=== PATIENT | female | born 1995 | race African-American/Black ===

== ENCOUNTER 2016-10-07 10:15 | Emergency (ER) | payer MEDICAID ==
[~2016-10-07] VITALS: Ht 160 cm; Wt 65.0 kg
[2016-10-07 10:17] VITALS: BP 134/92; PULSE 89; RESP 16; TEMP 97.8; O2SAT 99
--- NOTE | 2016-10-07 11:14 | PD ---
HPI . right shoulder pain x 1 day Chief Complaint: Injury Time Seen by Provider: 11:14 Travel History International Travel<30 days: No Contact w/Intl Traveler<30days: No Traveled to known affect area: No History of Present Illness HPI 21-year-old female with no past medical history here with complaints of right shoulder pain for 1 day. 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 She denies any trauma to the area. She did not hear any popping sensation. She denies any dislocation. She is not in severe pain and states she just needed to get checked out. History Past Medical Histgory LMP: PERIOD NOW Hx Chemotherapy: No Social History Alcohol Use: Yes (weekends) Tobacco Use: No Allergies-Medications (Allergen,Severity, Reaction): Coded Allergies: Monistat 7 (Verified Allergy, Intermediate, SWELLING, 10/07/16) Naprosyn (Verified Allergy, Intermediate, VOMIT, 10/07/16) Reported Meds & Prescriptions Reported Meds & Active Scripts Active No Active Prescriptions or Reported Medications Review of Systems General / Constitutional: No: Fever Eyes: No: Visual changes HENT: No: Headaches Cardiovascular: No: Chest Pain or Discomfort Respiratory: No: Shortness of Breath Gastrointestinal: No: Abdominal Pain Genitourinary: No: Dysuria Musculoskeletal: Positive: Pain (right shoulder pain) Skin: No Rash Neurologic: No: Weakness Psychiatric: No: Depression Endocrine: No: Polydipsia Hematologic/Lymphatic: No: Easy Bruising Physical Exam Narrative GENERAL: AAO x 3, no acute distress, Well-nourished, well-developed patient. SKIN: Warm and dry. No visible rashes or bruising. HEAD: Normocephalic and atraumatic. EYES: No scleral icterus. No injection or drainage. ENT: No nasal drainage noted. Mucous membranes pink. Airway patent. NECK: Supple, trachea midline. No JVD. CARDIOVASCULAR: Regular rate and rhythm without murmurs, gallops, or rubs. RESPIRATORY: Breath sounds equal bilaterally. No accessory muscle use. No rhonchi or rales. GASTROINTESTINAL: Abdomen soft, non-tender, nondistended. EXTREMITIES: No cyanosis or edema. Slightly diminished ROM in her right arm. She is able to rotate internally and externally. Strength is normal. Barrel Tester is normal b/l. BACK: Nontender without obvious deformity. No CVA tenderness. PSYCH: AAO x 3, normal affect. Data Data Last Documented VS Vital Signs Date Time Temp Pulse Resp B/P Pulse Ox O2 Delivery O2 Flow Rate FiO2 10/07/16 10:17 97.8 89 16 134/92 99 MDM Medical Screen Exam Complete: Yes Emergency Medical Condition: No Differential Diagnosis Nerve impingement of right shoulder, rotator cuff injury, shoulder bursitis Primary Impression: Encounter for medical screening examination Scripts No Active Prescriptions or Reported Meds Condition: Stable Erika Bolden Oct 07, 2016 11:14
== END 2016-10-07 12:16 | disposition left against medical advice (07) ==
LOC: NEPB 10:15
DX: M25.511 Pain in right shoulder (principal); Y93.F2 Activity, caregiving, lifting; X50.9XXA Other and unspecified overexertion or strenuous movements or postures, initial encounter; Y93.9 Activity, unspecified; Y92.9 Unspecified place or not applicable; Y99.9 Unspecified external cause status
CPT/HCPCS: 99281

== ENCOUNTER 2017-10-02 08:11 | Emergency (ER) | payer SELFPAY ==
[~2017-10-02] VITALS: Ht 160 cm; Wt 70.0 kg
[2017-10-02 08:13] VITALS: BP 121/58; PULSE 99; RESP 17; TEMP 98.2; O2SAT 98
--- NOTE | 2017-10-02 09:06 | PD ---
HPI Chief Complaint: Cold / Flu Symptoms Time Seen by Provider: 08:41 Travel History International Travel<30 days: No Contact w/Intl Traveler<30days: No Traveled to known affect area: No History of Present Illness HPI 21-year-old female presents emergency department with flulike symptoms for the past 24 hours. Patient has positive exposure to both her father and mother being diagnosed with the flu the last 2 weeks. Patient complains of chills, fever, body aches, rhinitis, sore throat and cough. She denies nausea or vomiting. 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 She is a non-smoker. She is allergic to miconazole and naproxen. PFSH Past Medical History Hx Anticoagulant Therapy: No Cardiovascular Problems: No Chemotherapy: No Cerebrovascular Accident: No Diabetes: No Diminished Hearing: No Respiratory: No ?: Not LMP: 09/06/16 : 0 Para: 0 Miscarriage: 0 : 0 Past Surgical History Hysterectomy: No Social History Alcohol Use: Yes (weekends) Tobacco Use: No Substance Use: No Allergies-Medications (Allergen,Severity, Reaction): Coded Allergies: miconazole (Unverified Allergy, Intermediate, SWELLING, 10/02/17) naproxen (Unverified Allergy, Intermediate, VOMIT, 10/02/17) Reported Meds & Prescriptions Reported Meds & Active Scripts Active Tamiflu (Oseltamivir Phosphate) 75 Mg Cap 75 Mg PO BID 5 Days Review of Systems Except as stated in HPI: all other systems reviewed are Neg General / Constitutional: Positive: Fever, Chills Eyes: No: Visual changes HENT: Positive: Headaches, Sore Throat, Rhinitis, Rhinorrhea, Congestion, Earache, No: Vertigo, Lightheadedness, Nosebleed, Neck Stiffness, Neck Pain, Dental Difficulties Cardiovascular: No: Chest Pain or Discomfort Respiratory: Positive: Cough, No: Shortness of Breath Gastrointestinal: No: Nausea, Vomiting, Abdominal Pain Genitourinary: No: Dysuria Musculoskeletal: Positive: Myalgias, No: Pain Skin: No Rash Neurologic: No: Weakness Psychiatric: No: Depression Endocrine: No: Polydipsia Hematologic/Lymphatic: No: Easy Bruising Physical Exam Narrative GENERAL: She appears ill but not septic SKIN: Warm and dry. Normal color. Normal turgor. HEAD: Atraumatic. Normocephalic. EYES: Pupils equal and round. No scleral icterus. No injection or drainage. ENT: No nasal bleeding moderate clear nasal discharge. Mucous membranes pink and moist. TMs are clear bilaterally. Posterior pharynx is mildly erythematous but without significant swelling or exudate. No sinus tenderness NECK: Trachea midline. Supple and nontender without significant lymphadenopathy CARDIOVASCULAR: Regular rate and rhythm. RESPIRATORY: No accessory muscle use. Clear to auscultation. Breath sounds equal bilaterally. GASTROINTESTINAL: Abdomen soft, non-tender, nondistended. Hepatic and splenic margins not palpable. MUSCULOSKELETAL: Extremities without clubbing, cyanosis, or edema. No obvious deformities. NEUROLOGICAL: Awake and alert. No obvious cranial nerve deficits. Motor grossly within normal limits. Five out of 5 muscle strength in the arms and legs. Normal speech. PSYCHIATRIC: Appropriate mood and affect; insight and judgment normal. Data Data Last Documented VS Vital Signs Date Time Temp Pulse Resp B/P (MAP) Pulse Ox O2 Delivery O2 Flow Rate FiO2 10/02/17 08:45 Room Air 10/02/17 08:13 98.2 99 17 121/58 (79) 98 MDM Medical Decision Making Medical Screen Exam Complete: Yes Emergency Medical Condition: Yes Differential Diagnosis Viral illness. Febrile illness. Influenza Narrative Course Patient is presumed to have influenza A Tamiflu 75 mg twice daily 5 days. Patient use Tylenol and ibuprofen, cough medicine as needed. Work note was given. Patient to follow-up if symptoms worsen as needed Diagnosis Primary Impression: Influenza A Referrals: [facility] Primary Care Physician Patient Instructions: General Instructions, H1N1 Influenza (ED) Departure Forms: Work Release Enter return to work date: Oct 06, 2017 Special Instructions: Patient has influenza. She should remain out of work until patient is fever free for 24 hours. Additional Instructions: Patient is presumed to have influenza A Tamiflu 75 mg twice daily 5 days. Patient use Tylenol and ibuprofen, cough medicine as needed. Work note was given. Patient to follow-up if symptoms worsen as needed Med/Other Pt SpecificInfo: Prescription(s) given Scripts Oseltamivir (Tamiflu) 75 Mg Cap 75 MG PO BID for Mgmt Viral Infection for 5 Days, #10 CAP 0 Refills Prov: Christian Hewitt MD 10/02/17 Disposition: 01 DISCHARGE HOME Condition: Stable Anmol Duong Oct 02, 2017 09:06
[2017-10-02] MEDS ORDERED: OSEL75 PO (09:07)
== END 2017-10-02 09:19 | disposition home or self-care (01) ==
LOC: NEPD 08:11
DX: J10.1 Influenza due to other identified influenza virus with other respiratory manifestations (principal)
CPT/HCPCS: 99283